=== PATIENT | female | born 1985 | race Caucasian/White ===

== ENCOUNTER 2025-04-10 07:39 | Emergency (ER) | payer BC, SELFPAY ==
--- NOTE | 2025-04-10 07:42 | XR_ITS ---
WS: [id number] Exam: XR chest 1V portable [id number] Date/Time of Exam: 04/10/2025 7:45 AM Reason For Exam: chest pain No priors. Lungs are fully expanded and clear. Normal cardiomediastinal silhouette. Bony structures are unremarkable. XR/XR chest 1V portable [id number] IMPRESSION: 1. Negative chest.
--- NOTE | 2025-04-10 07:42 | ECG_ITS ---
[facility] Test Date: 2025-04-10 Pat Name: Rio Rodriguez Department: Room: Gender: Female Director External Communications: : 1985 Requested By: Anton Ma Order Number: [id number] Rob MD: Andrae Fritz M.D. Measurements Intervals [place] Rate: 104 P: 77 [place]: 130 QRS: 67 QRSD: 88 T: 52 QT: 345 QTc: 454 Interpretive Statements SINUS TACHYCARDIA POSSIBLE LEFT ATRIAL ENLARGEMENT [-0.1mV P-WAVE IN V1/V2] NONSPECIFIC T-WAVE ABNORMALITY ABNORMAL RHYTHM ECG No previous ECG available for comparison Electronically Signed On 04-10-2025 22:28:49 CDT by Andrae Fritz M.D. [email or web address]
[2025-04-10 07:44] VITALS: BP 130/100; PULSE 112; RESP 16; TEMP 36.8; O2SAT 99; BMI 30.9
[2025-04-10 08:04] VITALS: RESP 18; O2SAT 97
--- NOTE | 2025-04-10 08:06 | ED_ITS ---
HPI - Chest Pain 2 General: Chief Complaint: Chest Pain Stated Complaint: chest tightness, R arm numbness Time Seen by Provider: 04/10/25 07:40 History of Present Illness: 39-year-old female presents emergency ro om with right-sided chest tightness, feeling tired. No fever sweats or chills she has had some sinus congestion and cough. Chest pain began overnight. Radiates into her right arm. She has no history of any arrhythmias. No known cardiac history. Patient recently had a mildly elevated TSH. Associated symptoms: Deny abdominal pain, dyspnea or fever(s) Related Data Home Medications ?Medication ?Instructions ?Recorded ?Confirmed norethindrone (contraceptive) 0.35 0.35 mg PO BEDTIME 04/10/25 04/10/25 mg tablet (Jencycla) Allergies Allergy/AdvReac Type Severity Reaction Status Date / Time erythromycin base Allergy ADR-Nausea Verified 04/10/25 07:50 Review of Systems 2 Const: Denies: fever(s) or chills Card: Reports: chest pain Resp: Denies: dyspnea GI: Denies: abdominal pain : Denies: dysuria, urinary frequency or urinary urgency Musc: Denies: neck pain or back pain Skin/Breast: Denies: rash Physical Exam 2 Const: COMMON NORMALS: no acute distress GENERAL APPEARANCE: cooperative and comfortable ORIENTATION/CONSCIOUSNESS: Yes awake, Yes oriented to person, Yes oriented to place and Yes oriented to time HENMT: COMMON NORMALS: normocephalic, atraumatic and hearing grossly normal bilaterally HEAD & SCALP: normocephalic and atraumatic Resp: COMMON NORMALS: normal respiratory effort, No retractions, No use of accessory muscles and clear to auscultation bilaterally AUSCULTATION: clear to auscultation bilaterally Cardio: COMMON NORMALS: regular rate, regular rhythm and No murmurs present (Cardio) RATE: regular rate RHYTHM: regular rhythm GI: COMMON NORMALS: Soft to palpation and No hepatosplenomegaly present A USCULTATION: Yes normoactive bowel sounds PALPATION: Yes Soft to palpation, No Tenderness to palpation present (GI), No Guarding due to palpation present (GI) and Yes No hepatosplenomegaly present Extremity: COMMON NORMALS: normal to inspection, capillary refill normal, no clubbing, cyanosis or edema, no calf tenderness and no pedal edema Neuro: SENSORIUM/ORIENTATION: Yes oriented to person, Yes oriented to place and Yes oriented to time Skin: COMMON NORMALS: no rashes or lesions noted GENERAL SKIN EXAM: no rashes or lesions noted Course 2 Vital Signs: Vital signs: Vital Signs Temperature 98.2 F 04/10/25 07:44 Pulse Rate 112 H 04/10/25 07:44 Respiratory Rate 18 04/10/25 08:04 Blood Pressure 123/79 04/10/25 10:29 Pulse Oximetry 97 04/10/25 10:29 Oxygen Delivery Me thod Room Air 04/10/25 10:29 MDM - Chest Pain Medical Decision Making No further palpitation not currently having any symptoms. Chest x-ray is normal there is no pneumothorax no widening of the mediastinum and no pneumonia. Her oxygen saturations have been normal on room air the entire time she is here. Called over to [facility] her TSH in late February was slightly above 5. Discussed with the patient that is subclinically hypothyroid -generally would not can consider that to be a cause of palpitations per se especially tacky arrhythmias. She has not had any symptoms since she has become here. Cardiac enzymes and EKG are normal Will set her up for a Holter monitor as an outpatient. Encouraged her to follow-up Dr. Thomas regarding the thyroid and the Holter monitor. EKG just prior to discharge her heart rate is in the 80s. When I seen the patient prior to discharge she was on telemetry her heart rate was in the 80s as well at that time. Medical Records I reviewed the patient's medical records. Lab Data I reviewed the patient's lab results. 04/10/25 08:00 04/10/25 08:00 Radiology Impressions Chest X-Ray 04/10/25 07:42 IMPRESSION: 1. Negative chest. Laboratory Results WBC 8.02 10^3/uL (3.29-11.43) 04/10/25 08:00 RBC 4.76 10^6/uL (3.85-5.65) 04/10/25 08:00 Hgb 13.90 g/dL (11.27-16.99) 04/10/25 08:00 Hct 41.3 % (36-47) 04/10/25 08:00 MCV 86.8 fl (85-98) 04/10/25 08:00 MCH 29.2 pg (27-33) 04/10/25 08:00 MCHC 33.7 g/dL (30-55) 04/10/25 08:00 RDW 12.4 % (12.1-15.1) 04/10/25 08:00 Plt Count 317 10^3/cmm (157-399) 04/10/25 08:00 MPV 10.3 fL (7.4-10.4) 04/10/25 08:00 Neut % (Auto) 68.2 % 04/10/25 08:00 Lymph % (Auto) 23.3 % 04/10/25 08:00 [place] % (Auto) 6.1 % 04/10/25 08:00 Eos % (Auto) 1.6 % 04/10/25 08:00 Baso % (Auto) 0.7 % 04/10/25 08:00 Neut # (Auto) 5.46 10^3/uL (1.8-7.7) 04/10/25 08:00 Lymph # (Auto) 1.9 10^3/uL (0.8-4.8) 04/10/25 08:00 [place] # (Auto) 0.5 10^3/uL (0.2-0.9) 04/10/25 08:00 Eos # (Auto) 0.1 10^3/uL (0.0-0.8) 04/10/25 08:00 Baso # (Auto) 0.1 10^3/uL (0.0-0.1) 04/10/25 08:00 Nucleated RBC % (auto) 0 % 04/10/25 08:00 Nucleated RBCs # 0.0 /100WBC 04/10/25 08:00 Sodium 137 mmol/L (136-145) 04/10/25 08:00 Potassium 3.8 mmol/L (3.5-5.1) 04/10/25 08:00 Chloride 101 mmol/L (98-107) 04/10/25 08:00 Carbon Dioxide 25 mmol/L (22-29) 04/10/25 08:00 Anion Gap 14.8 (5-19) 04/10/25 08:00 BUN 8 mg/dL (6-20) 04/10/25 08:00 Creatinine 0.7 mg/dL (0.5-0.9) 04/10/25 08:00 GFR Calculation 93.6 mL/min (90-130) 04/10/25 08:00 Glucose 108 mg/dL (65-115) 04/10/25 08:00 Calculated Osmolality 283 mOsm/kg (285-295) L 04/10/25 08:00 Calcium 9.3 mg/dL (8.5-10.5) 04/10/25 08:00 Total Bilirubin 0.5 mg/dL (0.15-1.2) 04/10/25 08:00 AST 16 U/L (0-32) 04/10/25 08:00 ALT 18 U/L (0-33) 04/10/25 08:00 Alkaline Phosphatase 71 U/L (35-105) 04/10/25 08:00 Troponin T Baseline < 6 ng/L (0-10) 04/10/25 08:00 Troponin T 120 Minute < 6.0 ng/L (0-10) 04/10/25 10:00 Delta Troponin T 0 ABS# (0-10) 04/10/25 10:00 Total Protein 7.9 g/dL (6.6-8.7) 04/10/25 08:00 Albumin 4.6 g/dL (3.5-5.2) 04/10/25 08:00 Globulin 3.3 g/dL (1.3-4.6) 04/10/25 08:00 All radiology interpretation(s) finalized by discharge EKG Data EKG 1: Interpretation: EKG 04/10/2025 7:44 AM sinus tachycardia rate of 104 [place] interval [address] changes likely rate related no evidence of ST elevation or T wave inversions Discharge Plan Discharge Patient Disposition: Home Clinical Impression: Atypical chest pain, Palpitations Condition: Stable Prescriptions: No Action norethindrone (contraceptive) [Jencycla] 0.35 mg tablet 0.35 mg PO BEDTIME Discharge Orders: Discharge ED (Routine); Ordered 04/10/25 Ordered By: Anton Marie Discharge Diet: Usual diet Discharge Activity: Resume usual activity Patient Instructions: Opioid Safety, Pain Management, Patient Portal & [place] Instructions Activity Restrictions/Additional Instructions: [facility] you [facility] needs today. It is very important that you follow up as instructed or that you return to the Emergency Department should you have concerns or if your condition changes or worsens in any way. Emergency department visits focused on emergent conditions in some cases urinary may require further evaluation on an outpatient basis. (Please note that included in your discharge packet is information opioid safety and pain management. This information is given to all patients were discharged from the ER regardless of their discharge diagnosis or the medicines they usually take or are prescribed. This is a requirement for [facility].) You were seen in the emergency room with complaints of chest discomfort and palpitations. Your cardiac enzymes and EKGs were normal. You did not have any arrhythmias while in the emergency room. Follow-up with your primary care doctor regarding your previously abnormal TSH. Will set you up for a 72-hour Holter monitor this can be reviewed with your primary care doctor as well. Print Language: Serbian Coding Level of Care Code ED [employer] for Jelani Schilling
[2025-04-10 08:09] LABS: Hematocrit 41.3 % (36-47); Hemoglobin 13.90 g/dL (11.27-16.99); Mean Corpuscular HGB Conc 33.7 g/dL (30-55); Mean Corpuscular Hemoglobin 29.2 pg (27-33); Mean Corpuscular Volume 86.8 fl (85-98); Nucleated Red Blood Cells % 0 %; Platelet Count 317 10^3/cmm (157-399); Red Blood Count 4.76 10^6/uL (3.85-5.65); White Blood Count 8.02 10^3/uL (3.29-11.43)
[2025-04-10 08:25] LABS: Alanine Aminotransferase 18 U/L (0-33); Albumin Level 4.6 g/dL (3.5-5.2); Alkaline Phosphatase 71 U/L (35-105); Anion Gap 14.8 (5-19); Aspartate Amino Transferase 16 U/L (0-32); Blood Urea Nitrogen 8 mg/dL (6-20); Calcium 9.3 mg/dL (8.5-10.5); Carbon Dioxide 25 mmol/L (22-29); Chloride 101 mmol/L (98-107); Creatinine Clr Calc Pharmacy 108.7046; Globulin 3.3 g/dL (1.3-4.6); Glucose 108 mg/dL (65-115); Osmolality Calculated 283 mOsm/kg (285-295); Potassium 3.8 mmol/L (3.5-5.1); Sodium 137 mmol/L (136-145); Total Protein 7.9 g/dL (6.6-8.7)
[2025-04-10 08:29] LABS: Troponin(5th) Baseline < 6 ng/L (0-10)
--- NOTE | 2025-04-10 09:42 | ECG_ITS ---
[facility] Date: 2025-04-10 Pat Name: Rio Rodriguez Department: Room: Gender: Female Emergency Management Director: : 1985 Requested By: Anton Ma Order Number: [id number] Rivas MD: Andrae Fritz M.D. Measurements Intervals [place] Rate: 81 P: 69 [place]: 137 QRS: 68 QRSD: 84 T: 46 QT: 360 QTc: 418 Interpretive Statements SINUS RHYTHM Compared to ECG 04/10/2025 07:44:07 Sinus tachycardia no longer present T-wave abnormality no longer present Electronically Signed On 04-10-2025 23:03:34 CDT by Andrae Fritz M.D. [email or web address] [id number]
[2025-04-10 10:29] VITALS: BP 123/79; O2SAT 97
[2025-04-10 10:33] LABS: Troponin 5 2HR < 6.0 ng/L (0-10); Troponin 5 2HR Delta 0 ABS# (0-10)
--- NOTE | 2025-04-15 07:14 | DCPLANNER ---
messaged heart care for er f/u
== END 2025-04-10 11:14 | disposition home or self-care (01) ==
PROVIDERS: Emergency Provider Family Medicine
DX: R07.89 Other chest pain (principal); R00.2 Palpitations
CPT/HCPCS: 36415; 71045; 80053; 84484; 85025; 93005; 99285